=== PATIENT | female | born 1960 | race Caucasian/White ===

== ENCOUNTER → 2017-07-05 | Outpatient (CLI) | payer BC | END | disposition home or self-care (01) | LOC: KCIC 15:20 | DX: S82.831D Other fracture of upper and lower end of right fibula, subsequent encounter for closed fracture with routine healing (principal); X58.XXXD Exposure to other specified factors, subsequent encounter | CPT/HCPCS: 73610 ==

== ENCOUNTER → 2020-06-29 | Outpatient (CLI) | payer OTHER, BC ==
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
== END ==
LOC: KCIC 15:33
PROVIDERS: ATTEND Internal Medicine
DX: S82.891A Other fracture of right lower leg, initial encounter for closed fracture (principal); M43.16 Spondylolisthesis, lumbar region; M48.061 Spinal stenosis, lumbar region without neurogenic claudication; X58.XXXA Exposure to other specified factors, initial encounter; Y93.89 Activity, other specified; Y92.89 Other specified places as the place of occurrence of the external cause; Y99.8 Other external cause status; Z90.49 Acquired absence of other specified parts of digestive tract
CPT/HCPCS: 72110; 73610; 73630